=== PATIENT | female | born 1980 | race Caucasian/White ===

== ENCOUNTER 2022-02-02 07:14 | Outpatient (RCR) | payer OTHER, SELFPAY ==
[2022-02-06 18:33] LABS: Adrenocorticotropic Hormone 6 pg/mL (6-50)
== END 2022-05-03 23:59 | disposition home or self-care (01) ==
LOC: ANHVASCINF 07:14
PROVIDERS: Visit Provider Nurse Practitioner
DX: E23.0 Hypopituitarism (principal)
CPT/HCPCS: 36415; 82024; 82533; 96372; J0834